=== PATIENT | female | born 1960 | race Caucasian/White ===

== ENCOUNTER 2021-12-13 08:50 | Outpatient (CLI) | payer OTHER, SELFPAY ==
--- NOTE | 2021-12-13 08:56 | MM_ITS ---
WS: [id number] SCREENING 3D TOMOSYNTHESIS DIGITAL MAMMOGRAM WITH CAD HISTORY: SCREENING COMPARISON: 05/12/2013, 07/22/2012 Bilateral CC and MLO views submitted. Computer aided detection analyzed. Breast composition: There are scattered areas of fibroglandular density. Area of architectural distor tion is very subtle in the upper outer quadrant of the RIGHT breast at a posterior depth. Slice 22/75 on the CC and 27/83 on the MLO. Benign calcifications otherwise in each breast. MM/[place] [id number] IMPRESSION: BI-RADS: 0-Incomplete: Need additional imaging evaluation FOLLOW UP: Need Additional Imaging RIGHT breast: Spot compression views (CC and MLO). True ML. Ultrasound to follo w if abnormality persists.
== END 2021-12-13 08:51 | disposition home or self-care (01) ==
LOC: RAD 08:53
PROVIDERS: Family Provider Family Medicine; PCP Family Medicine; Visit Provider Family Medicine
DX: Z12.31 Encounter for screening mammogram for malignant neoplasm of breast (principal)
CPT/HCPCS: 77063; 77067

== ENCOUNTER 2022-01-01 10:42 | Outpatient (CLI) | payer OTHER, SELFPAY ==
--- NOTE | 2022-01-01 11:01 | MM_ITS ---
WS: [id number] ADDITIONAL VIEWS RIGHT MAMMOGRAM WITH DIGITAL BREAST TOMOSYNTHESIS. RIGHT BREAST ULTRASOUND HISTORY: ABNORMAL MAMMO COMPARISON: 12/13/2021, 05/12/2013 and 07/22/2012 RIGHT MAMMOGRAM: Spot compression views and true ML with digital breast tomosynthesis and SM. Asymmetry noted in the upper-outer quadrant of the RIGHT breast essentially resolved. There is a very small amount of asymmetry in the middle depth. A few scattered calcifications. RIGHT BREAST ULTRASOUND 2-D and color Doppler imaging submitted. Ultrasound directed to the lateral RIGHT breast from 8-11 o'clock. No mass or distortion. No soft tis rohit changes. MM/[place] [id number] IMPRESSION: BI-RADS: 2-Benign FOLLOW UP: 1 Year Follow-up
== END 2022-01-01 10:43 | disposition home or self-care (01) ==
LOC: RAD 10:48
PROVIDERS: PCP Family Medicine; Visit Provider Family Medicine
DX: R92.8 Other abnormal and inconclusive findings on diagnostic imaging of breast (principal); R92.1 Mammographic calcification found on diagnostic imaging of breast
CPT/HCPCS: 76642; 77061

== ENCOUNTER → 2022-06-21 08:38 | Outpatient (BNVA) | payer OTHER, SELFPAY | PROVIDERS: PCP Family Medicine; Visit Provider Podiatrist Foot & Ankle Surgery | DX: Q82.8 Other specified congenital malformations of skin (principal); M89.8X7 Other specified disorders of bone, ankle and foot; M20.41 Other hammer toe(s) (acquired), right foot; M20.42 Other hammer toe(s) (acquired), left foot; M77.41 Metatarsalgia, right foot; M77.42 Metatarsalgia, left foot; L60.3 Nail dystrophy | CPT/HCPCS: 73630 ==

== ENCOUNTER → 2022-08-16 08:47 | Outpatient (BNVA) | payer OTHER, SELFPAY | PROVIDERS: PCP Family Medicine; Visit Provider Nurse Practitioner Family | DX: M17.11 Unilateral primary osteoarthritis, right knee (principal) | CPT/HCPCS: 73560; 73565 ==

== ENCOUNTER → 2022-09-20 10:33 | Outpatient (BNVA) | payer OTHER, SELFPAY | PROVIDERS: PCP Family Medicine; Visit Provider Nurse Practitioner Family | DX: M17.12 Unilateral primary osteoarthritis, left knee (principal); M25.562 Pain in left knee | CPT/HCPCS: 73560; 73565 ==

== ENCOUNTER 2022-10-04 07:34 | Outpatient (CLI) | payer OTHER, SELFPAY ==
--- NOTE | 2022-10-04 08:00 | MR_ITS ---
WS: [id number] MRI RIGHT KNEE HISTORY: Chronic progressive General pain. COMPARISON: 08/16/2022 and radiographs. Anterior cruciate ligament: The ACL is torn. There may be a few fibers remaining but there is anterio r translation of the tibia causing deformity of the remaining ACL fibers. Posterior cruciate ligament: Intact. Medial collateral ligament: Intact. Posterior lateral corner structures: Intact. Medial menisci: Abnormal posterior horn. Small caliber posterior horn with abnormal signal throughout . Consistent with a complex tear extending to involve the superior and inferior articular surfaces of the free edge. Lateral meniscus: Intact. Normal signal, size and shape. Extensor mechanism: Distal quadriceps tendon and patellar tendons are intact. Fluid and soft tissue: Moderate-sized joint effusion. No loose bodies. Small amount of edema surround ing the knee. 5.6 cm Armenta's cyst. Partial rupture of the cyst as there is fluid extending distal to the cyst. Osseous and articular structures: Patellofemoral compartment: Mild narrowing of the patellofemoral joint space. Mild chondromalacia inv olving the medial and lateral facets. No marrow edema. Medial compartment: Moderate narrowing of the medial compartment with moderate chondromalacia. Loss o f cartilage along the weightbearing surface of the femoral condyle and the tibial plateau. Partial ex trusion of the meniscus. Small subchondral cysts at the base of the tibial spines. There is a small a mount of marrow edema in the medial femoral condyle towards the intercondylar notch. Lateral compartment: Mild narrowing of the lateral compartment. Focal 8 mm cartilage defect weightbea ring surface femoral condyle. MR/MR knee RT wo con* [id number] IMPRESSION: 1. Abnormal ACL. High-grade if not complete tear of the mid ACL. 2. Complex tear posterior horn medial meniscus. Tear extends throughout the is thmus towards the meniscal root. Partial extrusion of the meniscus from the josé miguel nt. 3. Moderate joint effusion. 4. Large Armenta's cyst with partial rupture. 5. Mild patellofemoral joint space narrowing with chondromalacia. 6. Moderate medial compartment osteoarthritis with chondromalacia. 7. Mild lateral compartment joint space narrowing with 8 mm femoral condyle ar ea of chondromalacia.
== END 2022-10-04 07:35 | disposition home or self-care (01) ==
PROVIDERS: PCP Family Medicine; Visit Provider Nurse Practitioner Family
DX: S83.511A Sprain of anterior cruciate ligament of right knee, initial encounter (principal); S83.231A Complex tear of medial meniscus, current injury, right knee, initial encounter; X58.XXXA Exposure to other specified factors, initial encounter; M25.461 Effusion, right knee; M71.21 Synovial cyst of popliteal space [Baker], right knee; M22.41 Chondromalacia patellae, right knee; M17.11 Unilateral primary osteoarthritis, right knee
CPT/HCPCS: 73721

== ENCOUNTER 2022-10-18 07:25 | Outpatient (CLI) | payer OTHER, SELFPAY ==
--- NOTE | 2022-10-18 08:45 | MR_ITS ---
WS: [id number] MRI LEFT KNEE HISTORY: Chronic knee pain, no injury. COMPARISON: Radiographs 09/20/2022 Anterior cruciate ligament: Mild increased signal throughout the ACL but the fibers appear predominan tly intact. Posterior cruciate ligament: Intact. Medial collateral ligament: Displaced by an extruded meniscus. There is a small amount of fluid adjac ent to the MCL but no tear. Posterior lateral corner structures: Intact. Medial menisci: Small caliber posterior horn with blunting of the free edge and complex tear towards the meniscal root. Lateral meniscus: Intact. Normal signal, size and shape. Extensor mechanism: Distal quadriceps tendon and patellar tendons are intact. Fluid and soft tissue: Small suprapatellar joint effusion. There is a small amount of soft tissue omid ma surrounding the knee. Moderate-sized Armenta's cyst extends over a length of 7 cm. Osseous and articular structures: Patellofemoral compartment: Mild narrowing of patellofemoral joint space. Marked chondromalacia at th e patellar eminence and over the medial patellar facet. Cartilage defects extend to the cortical surf radha but there is no marrow edema. Medial compartment: Moderate narrowing of the medial compartment with moderate chondromalacia. Thinni ng of the cartilage is diffuse with full-thickness defects extending to the cortex. No marrow edema. Marginal osteophytes and extruded meniscus. Lateral compartment: Mild narrowing lateral compartment with superficial thinning and fissuring of th e cartilage. No marrow edema or fracture. MR/MR knee LT wo con* [id number] IMPRESSION: 1. Moderate narrowing medial compartment with moderate diffuse chondromalacia. 2. Extruded medial meniscus and osteophytes causing displacement of the MCL bu t no tear. 3. Complex tear involving the meniscal root posterior horn medial meniscus wit h an additional tear at the free edge. 4. Moderate-sized Armenta's cyst and suprapatellar joint effusion. 5. Marked chondromalacia of the patellar eminence and medial patellar facet.
== END 2022-10-18 07:26 | disposition home or self-care (01) ==
PROVIDERS: PCP Family Medicine; Visit Provider Nurse Practitioner Family
DX: G89.29 Other chronic pain (principal); M22.42 Chondromalacia patellae, left knee; M71.22 Synovial cyst of popliteal space [Baker], left knee; M25.462 Effusion, left knee; S83.232A Complex tear of medial meniscus, current injury, left knee, initial encounter; X58.XXXA Exposure to other specified factors, initial encounter; M25.762 Osteophyte, left knee
CPT/HCPCS: 73721

== ENCOUNTER → 2022-10-22 08:35 | Outpatient (BNVA) | payer OTHER, SELFPAY | PROVIDERS: PCP Family Medicine; Visit Provider Nurse Practitioner Family | DX: M17.11 Unilateral primary osteoarthritis, right knee (principal); S83.231A Complex tear of medial meniscus, current injury, right knee, initial encounter; W19.XXXA Unspecified fall, initial encounter; M66.0 Rupture of popliteal cyst; M94.261 Chondromalacia, right knee; M25.562 Pain in left knee | CPT/HCPCS: 73560; 73565 ==

== ENCOUNTER 2022-11-11 06:39 | Outpatient (CLI) | payer OTHER, SELFPAY ==
--- NOTE | 2022-11-11 07:00 | CT_ITS ---
WS: [id number] CT RIGHT knee, noncontrast HISTORY: pre op planning TECHNIQUE: Protocol for ALEJANDRO total knee replacement has been obtained. This includes axial imaging th rough the RIGHT hip, RIGHT knee and RIGHT ankle. DLP: 954.45 mGy.cm COMPARISON: None available. Pelvis: Bilateral symmetric pelvis. No significant narrowing of the hip joints. A few scattered sigmo id diverticula identified. RIGHT knee: Mild narrowing of all 3 compartments with small hypertrophic osteophytes. Small joint eff usion. No fracture. RIGHT ankle: No fractures or dislocations. CT/CT knee RT wo con* [id number] IMPRESSION: CT imaging provided for [facility] robotic total knee replacement.
== END 2022-11-11 06:40 | disposition home or self-care (01) ==
LOC: RAD 06:43
PROVIDERS: PCP Family Medicine; Visit Provider Orthopaedic Surgery
DX: M17.11 Unilateral primary osteoarthritis, right knee (principal); Z01.818 Encounter for other preprocedural examination
CPT/HCPCS: 73700

== ENCOUNTER 2022-11-25 12:55 | Observation (INO) | payer OTHER, SELFPAY ==
[2022-11-18 08:35] VITALS: BMI 31.3
--- NOTE | 2022-11-18 09:02 | ANES.PREANE2 ---
Pre-Anesthetic Assessment Height/Weight: Height 1.7 m Weight 90.718 kg Operation Date: 11/25/22 10:20 Proposed Procedures p right tka makoplasty/ 92715,M17.11(Right) - Sebas Sanchez MD Familial anesthetic complications: PONv Social No alcohol and No tobacco Exam alert, oriented x 3, clear to auscultation bilaterally and regular rate & rhythm Airway Mallampati: Class II Dentition: full GI Gastroesophageal Reflux Disease Anesthetic Plan ASA status: 2 Anesthesia: Regional (specify below) (spinal + adductor) Risk of > 500 ml blood loss (7ml/kg in children): No Medications/Allergies Home Medications Medication Instructions Recorded Confirmed Last Taken Type alprazolam 0.5 mg tablet 0.5 mg PO QID PRN Anxiety 11/18/22 11/18/22 Unknown History cyclobenzaprine 10 mg tablet 10 mg PO TID PRN Spasms 11/18/22 11/18/22 11/11/22 History gabapentin 300 mg capsule 600 mg PO BEDTIME 11/18/22 11/18/22 11/17/22 History hydrocodone 7.5 mg-acetaminophen 7.5 tab PO TID PRN Pain 11/18/22 11/18/22 11/11/22 History 325 mg tablet ibuprofen 800 mg tablet 800 mg PO TID PRN Pain 11/18/22 11/18/22 11/17/22 History Allergies Allergy/AdvReac Type Severity Reaction Status Date / Time tramadol Allergy ADR-Itching Verified 11/18/22 08:28 Data Anesthesia Cardiac Studies: No Data to Display
[2022-11-18 09:18] LABS: Basophils % 0.7 %; Eosinophils # 0.1 10^3/uL (0.0-0.8); Eosinophils % 1.8 %; Hematocrit 43.4 % (37.0-47.0); Hemoglobin 13.9 g/dL (11.5-15.3); Lymphocytes # 1.6 10^3/uL (0.8-4.8); Lymphocytes % 28.4 %; Mean Corpuscular Hemoglobin 28.5 pg (28.0-34.0); Mean Corpuscular Volume 88.9 fl (81-99); Mean Platelet Volume 9.1 fL (7.4-10.4); Monocytes # 0.6 10^3/uL (0.2-0.9); Monocytes % 10.6 %; Neutrophils # 3.27 10^3/uL (1.8-7.7); Neutrophils % 58.5 %; Nucleated Red Blood Cells % 0 %; Platelet Count 329 10^3/cmm (130-400); Red Blood Count 4.88 10^6/uL (4.1-5.3); Red Cell Distribution Width 14.5 % (12.1-15.1); White Blood Count 5.6 10^3/uL (4.0-10.0)
[2022-11-18 09:32] LABS: Blood Urea Nitrogen 23 mg/dL (8-23); Calcium 9.2 mg/dL (8.5-10.5); Carbon Dioxide 26 mmol/L (22-29); Chloride 100 mmol/L (98-107); Glomerular Filtration Rate 72.9 mL/min (90-130); Glucose 93 mg/dL (65-115); Osmolality Calculated 281 mOsm/kg (285-295); Sodium 134 mmol/L (136-145)
[2022-11-25] VITALS (17 sets, daily range): BP systolic 93–133; BP diastolic 63–98; PULSE 61–91; RESP 14–18; TEMP 36.2–36.6; O2SAT 95–100
[2022-11-25] MEDS: oxyCODONE 20 mg ER (12 HR) Tablet PO (09:58)
[2022-11-25] MEDS: acetaminophen 500 mg Tablet 1000 MG PO ×2 (09:59→17:14)
[2022-11-25] MEDS: gabapentin 300 mg Capsule PO (09:59)
[2022-11-25] MEDS: sodium chloride 0.9% 1,000 ML 30 ML IV (10:00)
[2022-11-25] MEDS: CELEcoxib 200 mg Capsule 400 MG PO (10:00)
--- NOTE | 2022-11-25 10:33 | W.PM.OPSFHP ---
Same Day Surgery H&P Indication for Procedure/HPI DATE OF PROCEDURE: November 25, 2022 CHIEF COMPLAINT/INDICATIONFOR SURGICAL PROCEDURE: Arthritis right knee here for right total knee arthroplasty PREOP DIAGNOSIS: Osteoarthritis right knee PLANNED PROCEDURE: Operation Date: 11/25/22 11:45 Proposed Procedures p right tka makoplasty/ 29627,M17.11(Right) - Sebas Sanchez MD The patient is a 62-year-old female with chronic right knee pain. She describes the original fall 3 years ago with now increasing pain since the beginning of the year. She describes aching feelings and tightness in the knee. She describes a popping sensation. Previous treatment has included ibuprofen, hydrocodone, and injections without lasting improvement. She is here for right total knee arthroplasty Medications/Allergies* Home Medications Medication Instructions Recorded Confirmed Type alprazolam 0.5 mg tablet 0.5 mg PO QID PRN Anxiety 11/18/22 11/25/22 History cyclobenzaprine 10 mg tablet 10 mg PO TID PRN Spasms 11/18/22 11/18/22 History gabapentin 300 mg capsule 600 mg PO BEDTIME 11/18/22 11/18/22 History hydrocodone 7.5 mg-acetaminophen 7.5 tab PO TID PRN Pain 11/18/22 11/18/22 History 325 mg tablet ibuprofen 800 mg tablet 800 mg PO TID PRN Pain 11/18/22 11/18/22 History Allergies/Adverse Reactions Allergy/AdvReac Type Severity Reaction Status Date / Time tramadol Allergy ADR-Itching Verified 11/25/22 09:43 Current Medications: Generic Name Dose Route Start Last Admin Trade Name Freq PRN Reason Stop Dose Admin Sodium Chloride 1,000 mls @ 30 mls/hr 11/25/22 09:45 11/25/22 10:00 Sodium Chloride 0.9% IV 11/26/22 09:44 30 mls/hr .Q24H SHAYNE Administration Pertinent Exam Findings alert, oriented x 3, clear to auscultation bilaterally, regular rate & rhythm and operative site marked KNEE right Medial joint line tenderness Patella tracks well ? Extention:? full ? Flexion:? 120 Strong right dorsalis pedis pulse Recommendations Surgery/Procedure today Coding Level of Care Code Acute Code for Chg Fwd Diagnoses
[2022-11-25] MEDS: ceFAZolin 2,000 MG in sodium chloride 0.9% (plus) 50 ML 100 MG IV ×2 (10:37→17:13)
--- NOTE | 2022-11-25 11:01 | P.ANESUD_ITS ---
Pre-Anesthetic Update Pre-Anesthetic Assessment: Date of Surgery/Procedure: 11/25/22 Preop Sarah Beth gnosis: Osteoarthritis right knee Proposed Procedure: Operation Date: 11/25/22 11:45 Proposed Procedures p right tka makoplasty/ 18745,M17.11(Right) - Sebas Sanchez MD Any changes to Pre-Anesthetic Assessment?: No Last Intake: Intake Last Liquid Date 11/24/22 Last Liquid Time 22:30 Last Solid Date 11/24/22 Last Solid Time 22:30 Vitals: Temperature 97.5 F L 11/25/22 09:41 Pulse Rate 65 11/25/22 09:41 Pulse Rhythm Regular 11/25/22 09:44 Pulse Strength 3+ Normal 11/25/22 09:44 Respiratory Rate 18 11/25/22 09:58 Respiratory Effort Spontaneous 11/25/22 09:58 Respiratory Depth Normal 11/25/22 09:58 Respiratory Patter n Normal 11/25/22 09:58 Blood Pressure 133/98 11/25/22 09:41 Blood Pressure Karin n 109 11/25/22 09:41 Pulse Oximetry 96 11/25/22 09:58 Oxygen Delivery Me thod Room Air 11/25/22 09:44 Exam: Pre-Anes Outpt Exam: alert, oriented x 3, clear to auscultation bilaterally and regular rate & rhythm Cardiac Studies: No Data to Display Anesthesia Procedures Nerve Block: Nerve Block 1: Main Anesthesia: spinal anesthesia block Time Out Performed: Yes Consent: requested by attending/covering physician, from patient, risks and benefits reviewed and patient agrees to proceed Nerve block location: adductor canal (right) Anesthesia monitors applied: pulse oximetry, EKG, BP cuff and oxygen Nerve block position: supine Anesthetic Used: ropivicaine 0.5% Amount of anesthesia used (mL): 20 Ultrasound used to: recognize landmarks Nerve Stimulator Used?: No Interscalene/Femoral BLK: 4 stimuplex 21 g needle used for position and inplane approach Injection: neg aspiration of heme Patient Tolerated Procedure: well Complications: none
[2022-11-25] MEDS: ketorolac 30 mg/mL INJ XX (12:00)
[2022-11-25] MEDS: EPINEPHrine 1 mg/mL INJ XX (12:00)
[2022-11-25] MEDS: tranexamic acid 1,000 mg/10mL SDV 1000 MG XX (12:00)
--- NOTE | 2022-11-25 12:21 | P.OP_ITS ---
Operative Report Date of procedure: November 25, 2022 Pre-op diagnosis: Preop Diagnosis Osteoarthritis right knee Post-op diagnosis: same Post-op diagnosis: Same Post-op findings: Same Procedure done: Right total knee arthroplasty Implants: Tuan Triathalon total knee arthroplasty components were used includin) Size 5 triathalon cruciate retaining femoral component 2) Size 4 Tritanium tibial component 3) Size 4/[]mm thickness CS tibial bearing insert Pathology: none sent Surgeon: Sebas Sanchez Chemistry Technical Officer: Marin Frazier Chemistry Technical Officer: The nurse practitioner the nurse practitioner assisted with critical portions of the case including positioning, draping, exposure, component implantation, closure and dressing application and is present through the entirety of the case. Anesthesia: Nerve Block (Spinal, adductor canal block) Estimated blood loss (mL): 250 Estimated blood loss: 100 Findings: The patient eburnated bone over the medial femoral condyle and medial tibial plateau. Eburnated 1 cm diameter area of full-thickness cartilage loss was seen over the weightbearing lateral femoral condyle there was minimal patellar intra-.chondromalacia Condition: stable Disposition: PACU Procedure: The patient was taken to the operating room. Patient was given 1 g of tranexamic acid and 2 g of Ancef. The above anesthesia provided by the anesthesia service. A timeout was performed. The patient was prepped and draped in the usual fashion with the lower extremity exposed. A anterior incision was made, midline, from a point proximal to the patella to the distal tibial tubercle. The knee was entered through a medial parapatellar approach. The patella could be displaced laterally and the knee flexed. The patellar fat pad was resected to provide better visibility. Retractors were placed medially and laterally adjacent to the tibial plateau. At a point approximately 8 cm above the patella, 2 small incisions were made with a scalpel blade and 2 long threaded pins were placed into the anterior medial femur engaging both cortices. The femoral arrays were placed over these pins and secured. At a point 8 cm distal to the tibial tubercle. 2 shorter bicortical threaded pins were placed across the anterior medial tibia and the tibial arrays placed. A checkpoint was made just proximal and medial to the medial femoral condyle and just medial to the tibial plateau. Small osteotomes were placed in the joint in both flexion and extension to determine ligamentous laxity. The femur was cut and additional 2 degrees of varus, distal lysed 2 mm and externally rotated 1 degree to provide balanced 9mm joint spaces. The ALEJANDRO robot was then introduced to the field and the femur and tibia cut in accordance with our plan. he [employer] Fastseal was then used to provide hemostasis, particularly about the posterior capsule. A trial with the above components provided excellent stability and full range of motion. The femur was then prepared for the femoral pegs of the component in the tibia for the tibial component. The femur and tibia were then press-fit into place. An osteotome was used to remove the lateral 8 mm of the patella to minimize chances of later impingement. A neurectomy was accomplished circumferentially about the patella with electrocautery and lateral osteophytes removed. Surfaces were cleaned with a gentamicin solution. The femur and tibia were then press-fit into place. The posterior capsule and collateral ligaments were then injected with a solution of 100 mL of 0.2% ropivacaine, 1 mL of a 1:1000 epinephrine solution, 30 mg of Toradol, and 1 g of tranexamic acid. Final polyethylene component was then snapped into place into the tibia. The extensor retinaculum was closed with a running 1 Stratafix interrupted 1 Ethibond. The subcutaneous tissues were closed with 2-0 Vicryl and the skin was closed with a running 4-0 Stratafix. The wound was covered with a Dermabond Prineo dressing. It was covered with 4xrs and a compressive Tubigauze was applied. The patient was taken to recovery room in stable condition.
--- NOTE | 2022-11-25 12:28 | XR_ITS ---
WS: [id number] Right knee, 3 views, 11/25/2022 Clinical Data: Right Total Knee arthroplasty Comparison: Bilateral knees, right knee, 10/22/2022 Findings: The right knee arthroplasty is in good position. There there is postoperative air in the knee joint. XR/XR knee RT 1-2V [id number] Impression: Right knee arthroplasty.
--- NOTE | 2022-11-25 12:33 | PC.NURSE ---
Pt arrived to PACU, Dressing to right knee C/D/I, right toes w/d, cap refill <3 seconds, good pedal pulse. Ice pack applied.
[2022-11-25] MEDS: morphine 4 mg/mL SDV 1 mL IVP (14:18)
[2022-11-25] MEDS: cyclobenzaprine 10 mg Tablet PO (14:18)
[2022-11-25] MEDS: sodium chloride 0.9% 1,000 ML 100 ML IV (14:21)
--- NOTE | 2022-11-25 15:03 | ANE.PACU2 ---
Inpatient post-anesthesia follow up: Airway intact: Yes Vital signs: Temperature 97.8 F Pulse Rate 61 Respiratory Rate 14 Blood Pressure 99/68 Pulse Oximetry 96 Oxygen Delivery Me thod Room Air Oxygen Flow Rate 6 Fraction of Inspir ed Oxygen Hydration adequate: Yes Nausea and vomiting: No Pain level: 1 Mental status: Baseline
[2022-11-25] MEDS: oxyCODONE 5 mg IR Tab/Cap 10 MG PO ×3 (15:28→23:59)
[2022-11-25] MEDS: sennosides-docusate Tablet 2 TAB PO (17:14)
[2022-11-25] MEDS: CELEcoxib 200 mg Capsule PO (21:16)
[2022-11-25] MEDS: gabapentin 300 mg Capsule 600 MG PO (21:16)
[2022-11-26] MEDS: sodium chloride 0.9% 1,000 ML 100 ML IV
[2022-11-26 00:38] VITALS: BP 127/78; PULSE 61; RESP 17; TEMP 36.8; O2SAT 99
[2022-11-26] MEDS: acetaminophen 500 mg Tablet 1000 MG PO (01:19)
[2022-11-26] MEDS: ceFAZolin 2,000 MG in sodium chloride 0.9% (plus) 50 ML 100 MG IV ×2 (02:09→09:34)
[2022-11-26 04:02] VITALS: BP 135/78; PULSE 64; RESP 17; TEMP 36.5; O2SAT 97
[2022-11-26 04:28] VITALS: RESP 16
[2022-11-26] MEDS: oxyCODONE 5 mg IR Tab/Cap 10 MG PO (04:28)
[2022-11-26 05:58] LABS: Hemoglobin 11.2 g/dL (11.5-15.3)
[2022-11-26] MEDS: cyclobenzaprine 10 mg Tablet PO (06:55)
--- NOTE | 2022-11-26 07:46 | PM.DCS ---
Discharge Providers Date of Admission: 11/25/22 12:55 Date of Discharge: November 26, 2022 Attending Provider at Admission: Sebas Sanchez MD Attending Provider at Discharge: Sebas Sanchez MD Primary Care Provider: Gonzales Chu MD Diagnoses at Discharge Discharge Diagnosis (1) Status post right knee replacement: Status: Acute (2) Osteoarthritis of right knee: Status: Resolved Qualifiers: Osteoarthritis type: primary Qualified Code(s): M17.11 - Unilateral primary osteoarthritis, right knee (3) Urinary retention: Status: Acute Reason for Visit Reason for Visit: M17.11 Unilateral primary osteoarthritis right kne Brief History: The patient is a 61 right knee pain unresponsive to conservative measures and injections. She was admitted for elective right total knee arthroplasty Hospital Course Hospital Course Nicole was admitted to the hospital after a unremarkable total knee arthroplasty. She had difficulty with urinary retention. He required intermittent catheterizations in the hospital. At the time of this dictation if she is unable to void a Ivory catheter will be placed and left in place at discharge. She was managed on aspirin and foot pumps for DVT prophylaxis Physical Exam Narrative: On the day of discharge the knee incision was clean. They had no drainage. There is minimal swelling in the thigh and knee and the calf. No distal neurovascular deficits were noted Urinary Catheter Management: Ivory: Cath Placed During This Visit: yes, but has since been removed by the nurse Urinary Catheter Date of Insertion: 11/25/22 Urinary Catheter Time of Insertion: 10:45 Date Urinary Catheter Removed: 11/25/22 Time Urinary Catheter Discontinued: 11:53 Discharge Data Studies Completed and Pending Completed Studies During Hospitalization Category Date Time Status XR knee RT 1-2V [id number] Routine Exams 11/25/22 12:28 Completed Radiology Impressions Knee X-Ray 11/25/22 12:28 Impression: Right knee arthroplasty. Laboratory Results WBC 5.6 10^3/uL (4.0-10.0) 11/18/22 09:05 RBC 4.88 10^6/uL (4.1-5.3) 11/18/22 09:05 Hgb 11.2 g/dL (11.5-15.3) L 11/26/22 05:49 Hct 43.4 % (37.0-47.0) 11/18/22 09:05 MCV 88.9 fl (81-99) 11/18/22 09:05 MCH 28.5 pg (28.0-34.0) 11/18/22 09:05 MCHC 32.0 g/dL (30.0-36.0) 11/18/22 09:05 RDW 14.5 % (12.1-15.1) 11/18/22 09:05 Plt Count 329 10^3/cmm (130-400) 11/18/22 09:05 MPV 9.1 fL (7.4-10.4) 11/18/22 09:05 Neut % (Auto) 58.5 % 11/18/22 09:05 Lymph % (Auto) 28.4 % 11/18/22 09:05 [place] % (Auto) 10.6 % 11/18/22 09:05 Eos % (Auto) 1.8 % 11/18/22 09:05 Baso % (Auto) 0.7 % 11/18/22 09:05 Neut # (Auto) 3.27 10^3/uL (1.8-7.7) 11/18/22 09:05 Lymph # (Auto) 1.6 10^3/uL (0.8-4.8) 11/18/22 09:05 [place] # (Auto) 0.6 10^3/uL (0.2-0.9) 11/18/22 09:05 Eos # (Auto) 0.1 10^3/uL (0.0-0.8) 11/18/22 09:05 Baso # (Auto) 0.0 10^3/uL (0.0-0.1) 11/18/22 09:05 Nucleated RBC % (auto) 0 % 11/18/22 09:05 Nucleated RBCs # 0.0 /100WBC 11/18/22 09:05 Sodium 134 mmol/L (136-145) L 11/18/22 09:05 Potassium 4.0 mmol/L (3.5-5.1) 11/18/22 09:05 Chloride 100 mmol/L (98-107) 11/18/22 09:05 Carbon Dioxide 26 mmol/L (22-29) 11/18/22 09:05 Anion Gap 12.0 (5-19) 11/18/22 09:05 BUN 23 mg/dL (8-23) 11/18/22 09:05 Creatinine 0.8 mg/dL (0.5-0.9) 11/18/22 09:05 GFR Calculation 72.9 mL/min (90-130) L 11/18/22 09:05 Glucose 93 mg/dL (65-115) 11/18/22 09:05 Calculated Osmolality 281 mOsm/kg (285-295) L 11/18/22 09:05 Calcium 9.2 mg/dL (8.5-10.5) 11/18/22 09:05 Vitals Last Vital Signs Temp 97.7 F 11/26/22 04:02 Pulse 64 11/26/22 04:02 Resp 16 11/26/22 04:28 BP 135/78 11/26/22 04:02 Pulse Ox 97 11/26/22 04:02 O2 Del Method Room Air 11/26/22 04:02 O2 Flow Rate 6 11/25/22 12:33 Discharge Plan Discharge Patient Disposition: Home Condition: Stable Prescriptions: New hydrocodone-acetaminophen 7.5-325 mg tablet 1 tab PO Q6H PRN (Reason: pain) 7 Days Qty: 30 0RF celecoxib 200 mg Capsule 200 mg PO Q12H 14 Days Qty: 28 0RF aspirin 325 mg Tablet,Delayed Release (Dr/Ec) 325 mg PO DAILY 30 Days Qty: 30 0RF Continued cyclobenzaprine 10 mg tablet 10 mg PO TID PRN (Reason: Spasms) alprazolam 0.5 mg tablet 0.5 mg PO QID PRN (Reason: Anxiety) gabapentin 300 mg capsule 600 mg PO BEDTIME Discontinued ibuprofen 800 mg tablet 800 mg PO TID PRN (Reason: Pain) hydrocodone-acetaminophen 7.5-325 mg tablet 7.5 tab PO TID PRN (Reason: Pain) Discharge Orders: Discharge Order (Routine); Ordered 11/26/22 Ordered By: Sebas Sanchez Other Ambulatory Orders: DME: Zack (Order) Location: None Selected Ordered By: Sebas Sanchez Referrals: Marin Frazier FNP [Physician Market Development Manager] - 11/29/22 9:00 am Discharge Diet: Advance as tolerated Discharge Activity: Limit activity as instructed Patient Instructions: Opioid Safety Activity Restrictions/Additional Instructions: Okay to shower Keep Tubigauze sleeve in place for swelling. Okay to remove for hygiene. Apply FirstIce up to 20 min/hr for pain and swelling Take Celebrex twice a day for the next 15 days for pain , discontinue other anti-inflammatory Take hydrocodone with acetaminophen for pain Exercises per physical therapy. May weight-bear as tolerated on total knee arthroplasty IF HAVE ANY PROBLEMS OR QUESTIONS CALL [facility] W[facility] SYSTEMS DESIGNER AT AND ASK TO HAVE DR. BREE NGO. Discharge Attestations Time Spent in Discharge Care*: other Quality Metrics Clinical Quality Measures [ No reported AMI, CVA or VTE this stay] Coding Level of Care Code Acute Code for Chg Fwd Diagnoses Status post right knee replacement Z96.651 Osteoarthritis of right knee M17.11 Osteoarthritis type: primary Urinary retention R33.9
[2022-11-26] MEDS: HYDROcodone-acetaminophen 7.5-325 mg Tablet 1 TAB PO ×2 (08:02→12:07)
[2022-11-26] MEDS: aspirin 325 mg EC Tablet PO (08:02)
[2022-11-26] MEDS: gabapentin 300 mg Capsule PO (08:02)
[2022-11-26] MEDS: sennosides-docusate Tablet 2 TAB PO (08:03)
[2022-11-26 08:17] VITALS: BP 127/84; PULSE 68; RESP 15; TEMP 36.5; O2SAT 99
[2022-11-26] MEDS: CELEcoxib 200 mg Capsule PO (09:34)
--- NOTE | 2022-11-26 10:27 | PC.CHAP ---
Pastoral Care Encounter/Spiritual Assessment Type of Contact [] Declined water gas operator visit [] Patient/Family/Request visit [] Outpatient visit [] Follow-up visit [] Physician referral [] Code/Alert [] Routine visit [] Staff referral [] Actively dying [] Patient sleeping [] Family support [] [] Out of room [] Palliative care [] [x] Receiving care in room [] Pre-surgical visit [] Trauma [] Long length of stay [] ICU visit [] Other: Relational/Emotional Strength [] Patient feels connected with others/family/visitors/staff [] Distress [] Loneliness/isolation [] Abandonment Spirituality of Patient [] Person of [place] [] Attends Sikhism of their [place] [] Believes in Prayer [] Reads Bible or Jewish materials [] There are Spiritual issues to be addressed Marketing Copywriter Interventions [] Prayer [] Active listening [] Non-anxious presence [] Spiritual/emotional support [] Crisis/trauma care [] Spiritual counseling [] Bereavement support [] Provided bereavement packet [] Provided Bible/devotional materials [] Provided toy/stuffed animal, coloring book to patient or family member [] Provided Communion [] Anointing/[place] [] Salvation [] Completed spiritual assessment [] Other: Impact on Illness or Injury [] Angry [] Fearful [] Anxious [] Often cries [] Exhaustion [] Unable to work [] Unable to attend bahai [] Unable to walk/stand [] Unable to read [] Unable to drive [] Unable to eat/drink [] Unable to sleep [] Unable to be with family [] Patient intubated [] Other: Summary Time spent with patient
[2022-11-26 13:25] VITALS: BP 156/88; PULSE 76; RESP 18; TEMP 36.4; O2SAT 99
[2022-11-26 15:08] VITALS: BP 156/88; PULSE 76; RESP 18; TEMP 36.4; O2SAT 99
== END 2022-11-26 15:09 | disposition home health service (06) ==
LOC: MEDSURG 13:02
PROVIDERS: Anesthesiology; Admitting Provider Orthopaedic Surgery; PCP Family Medicine; Visit Provider Orthopaedic Surgery
PROC: 8E0Y0CZ Robotic Assisted Procedure of Lower Extremity, Open Approach (ICD-10-PCS; CPT 27447; principal; 2022-11-25 11:15)
DX: M17.11 Unilateral primary osteoarthritis, right knee (principal); N39.0 Urinary tract infection, site not specified; Z88.5 Allergy status to narcotic agent
CPT/HCPCS: 27447; 36415; 51702; 73560; 80048; 85018; 85025; 97110; 97116; 97161; 97165; 97530; C1776; G0378; J0171; J0690; J1580; J1885; J2270; J2704; J2795; J7030

== ENCOUNTER → 2022-12-31 08:28 | Outpatient (BNVA) | payer OTHER, SELFPAY | PROVIDERS: Visit Provider Orthopaedic Surgery | DX: Z96.651 Presence of right artificial knee joint (principal) | CPT/HCPCS: 73560; 73565 ==

== ENCOUNTER 2022-12-31 10:17 | Outpatient (RCR) | payer OTHER, SELFPAY | END 2023-01-08 23:59 | disposition home or self-care (01) | LOC: SPT 10:17 | PROVIDERS: Visit Provider Orthopaedic Surgery | DX: Z47.1 Aftercare following joint replacement surgery (principal); Z96.651 Presence of right artificial knee joint | CPT/HCPCS: 97110; 97161 ==

== ENCOUNTER 2023-01-19 08:47 | Outpatient (RCR) | payer OTHER, SELFPAY | END 2023-02-07 23:59 | disposition home or self-care (01) | LOC: SPT 08:47 | PROVIDERS: Visit Provider Orthopaedic Surgery | DX: Z96.651 Presence of right artificial knee joint (principal) | CPT/HCPCS: 97110 ==

== ENCOUNTER 2023-02-08 06:00 | Outpatient (RCR) | payer OTHER, SELFPAY | END 2023-02-28 23:59 | disposition home or self-care (01) | LOC: SPT 06:00 | PROVIDERS: Visit Provider Orthopaedic Surgery | DX: Z47.1 Aftercare following joint replacement surgery (principal); Z96.651 Presence of right artificial knee joint | CPT/HCPCS: 97110 ==

== ENCOUNTER → 2023-02-19 08:11 | Outpatient (BNVA) | payer OTHER, SELFPAY | PROVIDERS: Visit Provider Nurse Practitioner Family | DX: Z96.651 Presence of right artificial knee joint (principal) | CPT/HCPCS: 73560; 73565 ==

== ENCOUNTER → 2023-03-07 07:24 | Outpatient (BNVA) | payer OTHER, SELFPAY | PROVIDERS: Visit Provider Student in an Organized Health Care Education/Training Program | DX: Z96.651 Presence of right artificial knee joint (principal) | CPT/HCPCS: 73560; 73565 ==

== ENCOUNTER → 2023-03-28 08:09 | Outpatient (BNVA) | payer OTHER, SELFPAY | PROVIDERS: Visit Provider Student in an Organized Health Care Education/Training Program | DX: M17.12 Unilateral primary osteoarthritis, left knee (principal); Z96.651 Presence of right artificial knee joint | CPT/HCPCS: 73560; 73565 ==

== ENCOUNTER 2023-07-16 09:57 | Outpatient (CLI) | payer OTHER, SELFPAY ==
--- NOTE | 2023-07-16 10:11 | MM_ITS ---
WS: [id number] BILATERAL SCREENING DIGITAL TOMOSYNTHESIS MAMMOGRAM WITH CAD HISTORY: SCREENING COMPARISON: 01/01/2022 and 12/13/2021 and 07/22/2012 Bilateral CC and MLO views with tomosynthesis and synthetic mammography submitted. Computer aided det ection analyzed. Breast composition: There are scattered areas of fibroglandular density. No suspicious masses, microc alcifications or architectural distortion. Benign calcifications in each breast. IMPRESSION: MM/[place] [id number] BI-RADS: 2-Benign FOLLOW UP: 1 Year Follow-up
== END 2023-07-16 09:58 | disposition home or self-care (01) ==
LOC: RAD 09:57
PROVIDERS: PCP Family Medicine; Visit Provider Family Medicine
DX: Z12.31 Encounter for screening mammogram for malignant neoplasm of breast (principal)
CPT/HCPCS: 77063; 77067

== ENCOUNTER → 2023-12-02 08:25 | Outpatient (BNVA) | payer OTHER, SELFPAY | PROVIDERS: PCP Family Medicine; Visit Provider Student in an Organized Health Care Education/Training Program | DX: Z96.651 Presence of right artificial knee joint (principal) | CPT/HCPCS: 73560; 73565 ==

== ENCOUNTER → 2024-05-07 10:29 | Outpatient (BNVA) | payer OTHER, SELFPAY | PROVIDERS: PCP Family Medicine; Visit Provider Physician Assistant | DX: Z96.651 Presence of right artificial knee joint (principal) | CPT/HCPCS: 73560; 73565 ==

== ENCOUNTER 2024-07-02 09:09 | Outpatient (CLI) | payer OTHER, SELFPAY ==
--- NOTE | 2024-07-02 09:11 | MR_ITS ---
WS: [id number] MRI ABDOMEN WITH AND WITHOUT CONTRAST. COMPARISON: Gallbladder ultrasound 05/27/2024 Multiplanar, multisequence imaging is performed with and without contrast. MultiHance 18 mL. Liver normal size. Very slight dropout of signal on the out of phase imaging suggesting mild hepatic steatosis. No intrahepatic bile duct dilatation. Normal portal vein. In the far lateral RIGHT lobe of the liver is a T2 hyperintense mass measuring 8 x 9 mm. This corresp onds to the finding on the recent ultrasound. Ultrasound measurements were slightly greater to the MR measurement. On the more delayed postcontrast imaging there is complete filling in of the lesion and the lesion becomes isointense with the remaining liver consistent with a small hemangioma. No additi onal masses are identified. Normal pancreas. No adrenal mass. Normal size spleen. Tiny cortical cyst in the posterior RIGHT kidne y measures 5 mm. Normal aorta. The visualized GI tract is negative for the upper abdomen although the re is moderate constipation. No ascites or adenopathy. MR/MR abdomen wo/w con* [id number] IMPRESSION: 1. Hepatic hemangioma in the RIGHT lobe measures 8 x 9 mm. This corresponds to the finding seen on the recent ultrasound. 2. Negative gallbladder. 3. No ascites or adenopathy. 4. Very minimal hepatic steatosis.
== END 2024-07-02 09:10 | disposition home or self-care (01) ==
LOC: RAD 09:09
PROVIDERS: PCP Family Medicine; Visit Provider Family Medicine
DX: D18.03 Hemangioma of intra-abdominal structures (principal); K59.00 Constipation, unspecified
CPT/HCPCS: 74183; A9577

== ENCOUNTER → 2025-07-18 08:09 | Outpatient (BNVA) | payer OTHER, SELFPAY | PROVIDERS: PCP Family Medicine; Visit Provider Specialist | DX: M17.11 Unilateral primary osteoarthritis, right knee (principal); Z96.651 Presence of right artificial knee joint; T84.84XA Pain due to internal orthopedic prosthetic devices, implants and grafts, initial encounter; M06.4 Inflammatory polyarthropathy | CPT/HCPCS: 36415; 73560; 73565; 80053; 84550; 85025; 85651; 86140; 86200; 86225; 86235; 86431 ==